=== PATIENT | female | born 1965 | race Two or more races ===

== ENCOUNTER 2024-05-22 15:14 | Emergency (ER) | payer MEDICAID, SELFPAY ==
[2024-05-22 15:23] VITALS: BP 164/92; PULSE 73; RESP 20; TEMP 37.1; O2SAT 96; BMI 39.9
--- NOTE | 2024-05-22 15:28 | XR_ITS ---
Examination: Ribs, left, with PA chest, 5 views Technique: Chest PA, RIBS AP, RPO, LPO, AP coned lower ribs 5 views Exam date and time: May 22, 2024 1529 hrs. Indications: Injury to the left chest 10 days ago with left rib pain Findings: Normal heart size Subsegmental atelectasis both bases No pneumothorax No acute fracture Impression: No pneumothorax pulmonary contusion or hemothorax No acute left rib fractures
--- NOTE | 2024-05-22 15:28 | PD.EDRME ---
Rapid Medical Screening Exam RME Arrival date/time: 05/22/24 15:14 58-year-old female presents emergency department complaining of left rib pain during inspiration after suffering ground-level fall approximately 10 days ago. Chief Complaint: Shortness of Breath/Dyspnea Vital signs: Vital Signs Temperature 98.8 F 05/22/24 15:23 Pulse Rate 73 05/22/24 15:23 Respiratory Rate 20 05/22/24 15:23 Blood Pressure 164/92 H 05/22/24 15:23 Pulse Oximetry (%) 96 05/22/24 15:23 Oxygen Delivery Method Room Air 05/22/24 15:23 Vital signs reviewed by provider: Yes
[2024-05-22] MEDS: KETOROLAC INJ 60 MG/2 ML VIAL 30 MG IM (15:47)
--- NOTE | 2024-05-22 16:59 | EDNOTE_ITS ---
ED SOB =RME/HPI General Chief Complaint: Shortness of Breath/Dyspnea Stated Complaint: LEFT RIB PAIN WHILE BREATHING POST FALL X 10 DAYS Time Seen by Provider: 05/22/24 15:29 Source: patient Arrival date/time: 05/22/24 15:14 58-year-old female presents emergency department complaining of left rib pain during inspiration after suffering ground-level fall approximately 10 days ago. Patient also endorses scab to right forearm that may be infected. Patient denies any fever, chills, nausea vomiting, or any other associated symptom. Mode of arrival: ambulatory Limitations: no limitations RME / HPI RME / HPI Narrative: 05/22/24 15:14 58-year-old female presents emergency department complaining of left rib pain during inspiration after suffering ground-level fall approximately 10 days ago. Related Data Previous Rx's ?Medication ?Instructions ?Recorded Sulfamethoxazole/Trimethoprim DS * 1 tab PO BID #20 tabs 07/10/14 (BACTRIM DS *) hydrocodone 5 mg-acetaminophen 325 1 tab PO BID PRN pain #6 tabs 01/19/22 mg tablet ibuprofen 800 mg tablet 800 mg PO TID PRN pain #30 tabs 01/19/22 cefuroxime axetil 500 mg tablet 500 mg PO BID 7 days #14 tabs 05/22/24 ibuprofen 600 mg tablet 600 mg PO Q8H PRN pain #20 tabs 05/22/24 Allergies Allergy/AdvReac Type Severity Reaction Status Date / Time No Known Allergies Allergy Verified 05/22/24 15:16 Review of Systems Review of Systems Systems Reviewed: All systems reviewed, normal except as documented Constitutional Constitutional: Reports system reviewed and no additional complaints, except as documented, Denies body ache(s), Denies chills and Denies fever(s) Eyes Eyes: Reports system reviewed and no additional complaints, except as documented and Denies change in vision ENT Ears, Nose, Mouth, and Throat: Reports system reviewed and no additional complaints, except as documented, Denies disequilibrium, Denies dizziness, Denies sore throat and Denies vertigo Cardiovascular Cardiovascular: Reports system reviewed and no additional complaints, except as documented, Denies chest pain and Denies dyspnea Respiratory Respiratory: Reports system reviewed and no additional complaints, except as documented, Denies chest congestion, Denies cough and Denies dyspnea Gastrointestinal Gastrointestinal: Reports system reviewed and no additional complaints, except as documented, Denies abdominal pain, Denies nausea and Denies vomiting Musculoskeletal Musculoskeletal: Reports system reviewed and no additional complaints, except as documented, Denies abnormal gait and Denies arthralgias Integumentary/Breasts Skin/Breast: Reports system reviewed and no additional complaints, except as documented, Reports erythema, Denies rash, Reports wounds (Scab right forearm) and Denies breast swelling Neurologic Neurologic: Reports system reviewed and no additional complaints, except as documented, Denies abnormal gait, Denies disequilibrium, Denies dizziness and Denies vertigo Past Medical History Past Medical History CARDIAC: Negative Cardiac Disorders RESPIRATORY: Negative Asthma GENITOURINARY: Negative Renal Disease ENDOCRINE: Negative Diabetes Mellitus Type 2 HEMATOLOGIC: Negative Sickle Cell Disease Social History SMOKING STATUS: Light (< 1 pack/day) ED Exam General Limitations: Present no limitations General appearance: Present alert and in no apparent distress Head Head exam: Present atraumatic Eye Eye exam: Present normal appearance, PERRL and EOMI ENT ENT exam: Present normal exam, normal oropharynx and mucous membranes moist Neck Neck exam: Present normal inspection, full ROM and trachea midline Chest Chest inspection: Present normal inspection and symmetric chest wall rise Respiratory Respiratory exam: Present normal lung sounds bilaterally Cardiovascular Cardiovascular exam: Present regular rate, normal rhythm and normal heart sounds Abdominal Exam Abdominal exam: Present soft and normal bowel sounds Extremities Exam Extremities exam: Present normal inspection and full ROM Back Exam Back exam: Present normal inspection and full ROM Neurological Exam Neurological exam: Present alert, oriented X3 and CN II-XII intact Psychiatric Psychiatric exam: Present normal affect and normal mood Skin Skin exam: Present warm, dry and normal color Expanded Skin Exam Type of lesion: Present other (Dried scab redness around scab without localized induration or drainage.) Distribution: Present RUE Description: Present erythematous and swelling Body image: 2 1. Dried scab with redness around scab no obvious drainage or induration but is erythematous Course Quality Measures none Orders Category Date Time Status XR ribs LT min 3V w CXR1V Stat Exams 05/22/24 15:28 Completed Ketorolac Inj [Toradol Inj] Med 05/22/24 15:28 Discontinued 30 mg IM X1 ONE Vital Signs Vital signs: Vital Signs Temperature 98.8 F 05/22/24 15:23 Pulse Rate 73 05/22/24 15:23 Respiratory Rate 20 05/22/24 15:23 Blood Pressure 164/92 H 05/22/24 15:23 Pulse Oximetry (%) 96 05/22/24 15:23 Oxygen Delivery Method Room Air 05/22/24 15:23 96% room air within normal limits Shortness of Breath / Dyspnea MDM Narrative MDM Narrative:: 58-year-old female presents emergency department complaining of left rib pain during inspiration after suffering ground-level fall approximately 10 days ago. Patient also endorses scab to right forearm that may be infected. Patient denies any fever, chills, nausea vomiting, or any other associated symptom. X-rays were negative for any acute rib fracture or pneumonia. Patient appears nontoxic hemodynamic stable. No adventitious lung sounds on auscultation. Antibiotics ordered for possibly infected scab to right forearm. Patient discharged ducted to follow-up with primary care provider and return to emergency department for any worsening symptoms or as needed. Patient data External records reviewed:: [facility] previous records Clinical information provided by:: patient Social determinants that could affect healthcare access:: none Patient has the following chronic illnesses:: N/A How is presenting disease/condition affected by chronic disease/condition?: u neffected by Evaluation data The following diagnostics were reviewed and interpreted by me:: radiology exam(s) Lab and/or radiology exams considered but not ordered:: Ordered Interpretation Summary: Interpreted by me Medications / Prescriptions Medications or Prescriptions considered but not ordered:: Ordered Medication administrations:: Medication Administration History Discontinued Medications Ketorolac Tromethamine (Ketorolac Inj 60 Mg/2 Ml Vial) 30 mg IM X1 ONE Stop: 05/22/24 15:29 Last Admin: 05/22/24 15:47 Dose: 30 mg Documented By: Given Consultations Consultation(s) initiated? (list below): No Diagnosis Shortness of Breath Differential Diagnosis: acute exacerbation of chronic obstructive airways disease, congestive heart failure, community acquired pneumonia, asthma with exacerbation and pulmonary embolism Most likely diagnosis given after review of the tests above:: Rib pain Cellulitis right forearm Admission Indicated Admission indicated?: not indicated Admission Request Was there a request for admission?: No Disposition Plan Disposition Plan: Discharge Discharge Attestation Discharge Attestation: The patient and all family members were given an opportunity to ask questions and understood the discharge instructions. Discharge instructions specifically effects, indications for sooner follow up or return to the emergency department, and the expected course of current diagnosis. Patient condition: Stable Discharge Plan Plan Patient Disposition: HOME (Self Care) Disposition Comment: Stable Prescriptions/Referrals Prescriptions/Med Rec: New cefuroxime axetil 500 mg tablet 500 mg PO BID 7 Days Qty: 14 0RF ibuprofen 600 mg tablet 600 mg PO Q8H PRN (Reason: pain) Qty: 20 0RF No Action Sulfamethoxazole/Trimethoprim DS * (BACTRIM DS *) 1 TAB tablet 1 tab PO BID Qty: 20 0RF ibuprofen 800 mg tablet 800 mg PO TID PRN (Reason: pain) Qty: 30 0RF hydrocodone-acetaminophen 5-325 mg tablet 1 tab PO BID MDD 10 PRN (Reason: pain) Qty: 6 0RF Referrals: Augustine Benjamin MD [Primary Care Provider] - In 1 week Problem List Clinical Impression: Rib pain on left side, Cellulitis of arm, right Patient/Caregiver Discharge Instructions Discharge Activity: activity as tolerated Education Materials: ED Chest Pain, Noncardiac, ED Cellulitis Additional Instructions: Take medication as prescribed. Close follow-up with primary care provider in 24 to 48 hours. Return immediately to the emergency department for any worsening symptoms or as needed. Print Language: Angolan Stand Alone Forms: Aranza Award Info., Patient Portal Info Letter PA/STUART Supervising Physician TORO/STUART Supervising Physician: Dr. Su
== END 2024-05-22 18:08 | disposition home or self-care (01) ==
PROVIDERS: Emergency Provider Emergency Medicine; PCP Family Medicine
DX: S29.9XXA Unspecified injury of thorax, initial encounter (principal); W18.30XA Fall on same level, unspecified, initial encounter; L03.113 Cellulitis of right upper limb
CPT/HCPCS: 71101; 96372; 99283; J1885